=== PATIENT | male | born 1955 | race Caucasian/White ===

== ENCOUNTER 2024-02-26 17:48 | Emergency (ER) | payer MEDICAID ==
[~2024-02-26] VITALS: Ht 180.3 cm; Wt 88.0 kg
[2024-02-26 18:05] VITALS: O2SAT 97
[2024-02-26 23:04] VITALS: BP 137/79; PULSE 67; RESP 16; TEMP 98.3
== END 2024-02-26 23:05 | disposition home or self-care (01) ==
LOC: ER 17:48
DX: S00.03XA Contusion of scalp, initial encounter (principal); V49.9XXA Car occupant (driver) (passenger) injured in unspecified traffic accident, initial encounter; Y93.89 Activity, other specified; Y92.89 Other specified places as the place of occurrence of the external cause; Y99.8 Other external cause status
CPT/HCPCS: 70486; 73030; 73560; 99284